=== PATIENT | female | born 1945 | race African-American/Black ===

== ENCOUNTER 2016-07-31 17:35 | Inpatient (IN) | payer OTHER, MEDICARE ==
--- NOTE | ~2016-07-31 | PRECARD ---
H&P [facility] [address] [place]. [address] NAME: AMIRA BEST : 47 STATUS : ADM IN [facility]#: [id number] AGE: 71 ADM/REG DATE : 07/31/16 MR#: [id number] REPORT SERV DATE: 07/31/16 DICTATED BY: GARRETT ALMANZA DATE: 07/31/16 REPORT STATUS : Draft TRANSCRIBED BY: CAMILLA DATE: 07/31/16 DATE OF ADMISSION: 07/31/2016 ADMISSION REASON: Symptomatic bradycardia. HISTORY OF PRESENT ILLNESS: Ms Best is a 71-year-old female with a history of treated hypertension and bipolar disorder, who presented to an outside facility for further evaluation of recent profound fatigue/malaise and exertional intolerance with shortness of breath. She had no chest pain/angina. She had some mild dizziness, but no near syncope or syncope. On arrival there, she was noted to have a bradycardia and an EKG obtained shows sinus bradycardia with a heart rate of 33 beats per minute. She was triaged to the [facility] Emergency Department for further evaluation, where repeat EKG obtained showed a sinus bradycardia at 41 beats per minute with junctional escape and an isorhythmic dissociation. She required no treatment and was otherwise hemodynamically stable. Subsequently since being in the ER, she is stable sinus bradycardia in the 50s. She reports having a heart rate that typically runs low in the 40s-50s, but symptoms recently were new and different for her. She denies having any recent orthopnea/PND or lower extremity edema. REVIEW OF SYSTEMS: Pertinent positives and negatives as outlined above, all others are negative. PAST MEDICAL HISTORY: 1. Hypertension. 2. Bipolar disorder. 3. Iron deficiency anemia. MEDICATIONS: Her current home medications are: 1. Amlodipine 10 mg daily. 2. Lisinopril 20 mg daily. 3. Potassium supplementation. 4. Synthroid 175 mcg daily. 5. Omeprazole 20 mg daily. 6. Vitamin B12 supplementation. 7. Vitamin D supplementation. 8. Lamictal 100 mg twice daily. 9. Quetiapine 400 mg at bedtime. 10.Bupropion 225 mg twice daily. 11.Iron supplementation. 12.Fluticasone nasal spray. ALLERGIES: NSAIDS AND ASPIRIN, WHICH CAUSES ANAPHYLAXIS AND TONGUE SWELLING. SOCIAL HISTORY: She has a 21-year history of service. She has never use tobacco products. She does not consume alcohol or illegal drugs. FAMILY HISTORY: Significant for hypertension and breast cancer. No family history of H&P PRE [address] [place]. [address] NAME: AMIRA BEST : 47 STATUS : ADM IN [facility]#: [id number] AGE: 71 ADM/REG DATE : 07/31/16 MR#: [id number] REPORT SERV DATE: 07/31/16 DICTATED BY: GARRETT ALMANZA DATE: 07/31/16 REPORT STATUS : Draft TRANSCRIBED BY: CAMILLA DATE: 07/31/16 premature CAD, arrhythmia, or sudden . PHYSICAL EXAMINATION: VITALS: Temperature is afebrile, pulse is 50, respirations 16, blood pressure 170/80. MENTAL STATUS: Awake, alert, and oriented x3. PSYCH: Euthymic, normal affect. GENERAL: Well appearing and in no distress. HEENT: Sclerae anicteric, mucous membranes moist and without lesions. NECK: No jugular venous distention. No hepatojugular reflux, carotid upstrokes 2+ and symmetric, there are no carotid or subclavian bruit. LUNGS: Clear to auscultation without wheezes, crackles, or rales. CARDIOVASCULAR: Regular with normal S1 and S2, no murmurs, no S3 or S4, no parasternal lift, PMI is nondisplaced and nonsustained. ABDOMEN: Soft and nontender. Bowel sounds positive and normoactive. No hepatomegaly, no masses, no abdominal bruit. PULSES: Radial and dorsalis pedis pulses 2+ and symmetric. EXTREMITIES: Warm and without edema. SKIN: No clubbing or cyanosis, no rashes or lesions. ACCESSORY DATA: Labs with creatinine of 1.3, otherwise normal electrolytes. Hematocrit 37, platelet count 246, white count 6.4. Troponin negative. INR 1.1. IMPRESSION: 1. Sinus node dysfunction/sick sinus syndrome. 2. Symptomatic bradycardia. 3. Hypertension. 4. Bipolar disorder. 5. History of iron deficiency anemia. PLAN: 1. Admit to IMCU with atropine at bedside. 2. Urinalysis. 3. Check a.m. labs including thyroid profile. 4. Check a.m. echocardiogram to assess cardiac dimensions and function. 5. A.m. ECG. 6. N.p.o. after midnight for permanent pacemaker placement. CONSENT: Risk and benefits of permanent pacemaker placement were discussed with the patient tonight. Risks including bleeding, infection, vascular access trauma, pneumothorax, myocardial damage and pericardial effusion, and rare less than 1% chance of major complications such as heart attack and stroke were all covered. After this, informed consent was obtained and she agreed to proceed. BRENDA/CAMILLA H&P [address] [address] NAME: AMIRA BEST : 47 STATUS : ADM IN [facility]#: [id number] AGE: 71 ADM/REG DATE : 07/31/16 MR#: [id number] REPORT SERV DATE: 07/31/16 DICTATED BY: GARRETT ALMANZA DATE: 07/31/16 REPORT STATUS : Draft TRANSCRIBED BY: CAMILLA DATE: 07/31/16 Garrett Almanza M.D. / [id number] CC: Blane Burnett
--- NOTE | ~2016-07-31 | DS ---
Discharge Summary [facility] [address] [place]. [address] NAME: AMIRA ESTEBAN : 47 STATUS : DIS IN PAT#: [id number] AGE: 71 ADM/REG DATE : 07/31/16 MR#: [id number] REPORT SERV DATE: 08/12/16 DICTATED BY: GARRETT ALMANZA DATE: 08/12/16 REPORT STATUS : Draft TRANSCRIBED BY: CAMILLA DATE: 08/12/16 Data Collection from hospitalization DISCHARGE DIAGNOSES: 1. Symptomatic bradycardia. 2. Sinus node dysfunction/sick sinus syndrome. 3. Hypertension. 4. Acute renal failure/acute kidney injury. 5. Bipolar disorder. 6. Iron deficiency anemia. CONSULTATIONS: 1. Sebas Patterson M.D. 2. Cesar Purdy M.D. PROCEDURES PERFORMED: Pacemaker implantation on 08/01/2016. MEDICATIONS: Tylenol 1300 mg twice a day as needed, Ventolin two puffs via inhaler every six hours as needed, Norvasc 5 mg daily, Wellbutrin 225 mg twice a day, Coreg 6.25 mg twice a day, vitamin D3 1000 units with lunch, docusate sodium 250 mg every morning, ferrous sulfate 325 mg every morning, Flonase nasal spray one spray nasally twice a day, Lamictal 100 mg twice a day, levothyroxine 175 mcg before breakfast, Claritin 10 mg every morning, Prilosec 20 mg before breakfast, Seroquel 400 mg at bedtime, Ultram one to two tablets every four hours as needed, urea one application topically at bedtime, vitamin B12 one tablet every morning, and vitamin A/D ointment one application topically daily. She was instructed not to continue Klor-Con or Prinivil. CONDITION AT DISCHARGE: Stable. DISPOSITION: The patient was discharged home on a low-sodium, low-cholesterol, cardiac diet with activities as instructed. She would follow up with Dr. Cesar Purdy on 08/20/2016 and with me three to four weeks following discharge. She would follow up in the [facility] at [facility] three weeks following discharge. HOSPITAL COURSE: This is a 71-year-old female who has a history of treated hypertension and bipolar disorder who presented to an outside facility for further evaluation of recent profound fatigue and malaise and exertional intolerance with shortness of breath. She had no chest pain/angina. She had some mild dizziness, but no near syncope or syncope. On arrival there, she was found to have bradycardia and an EKG was obtained and it showed sinus bradycardia with a heart rate of 33 beats per minute. She was triaged to the [facility] Emergency Department for further evaluation and repeat EKG obtained showed a sinus bradycardia at 41 beats per minute with junctional escape and isorhythmic dissociation. She required no treatment and was otherwise hemodynamically stable. Subsequently since being in the emergency room, she was stable with sinus bradycardia in the 50s. She reported having a heart rate that typically runs in the 40-50, but symptoms recently were new and different for her. She denied having any recent orthopnea, PND, or lower extremity edema. She was admitted to the hospital for further evaluation and treatment. Discharge Summary [address] [address] NAME: AMIRA ESTEBAN : 47 STATUS : DIS IN PAT#: [id number] AGE: 71 ADM/REG DATE : 07/31/16 MR#: [id number] REPORT SERV DATE: 08/12/16 DICTATED BY: GARRETT ALMANZA DATE: 08/12/16 REPORT STATUS : Draft TRANSCRIBED BY: MODRuslan DATE: 08/12/16 Upon admission, troponin was negative. Creatinine was 1.3. She was felt to have sinus node dysfunction/sick sinus syndrome and symptomatic bradycardia. She was placed in the IMCU with atropine at the bedside. Urinalysis was obtained. We would check a.m. labs including thyroid profile and would check an echocardiogram to assess cardiac dimensions and functions. A.m. ECG was going to be performed. She would be held n.p.o. after midnight as it was felt that she would need to undergo permanent pacemaker placement. She agreed to proceed. She was seen in consultation by Dr. Sebas Patterson regarding symptomatic sinus bradycardia. In the emergency room, she was found to be in profound sinus bradycardia with heart rates in the 30s at times with isorhythmic dissociation. She had no medications that would have caused sinus bradycardia. She does receive thyroid replacement hormone, but all of her thyroid studies were within normal limits except for a reverse T3 value which was only slightly abnormal. She had no electrolyte abnormalities. She denies presyncope or syncope. She did admit to being profoundly weak and fatigued. Her EKG showed sinus bradycardia with isorhythmic dissociation, normal QRS and QT intervals. There was no evidence for ischemia infarction or chamber hypertrophy. It was felt that she would need to undergo dual-chamber permanent pacemaker implantation. She agreed to proceed. The following day, she was taken to the Electrophysiology Laboratory where she underwent the above-mentioned procedure. She tolerated this well, and there were no complications. On postop day #1, she was seen by Dr. Cesar Purdy regarding acute kidney injury. Creatinine on arrival was 1.3. Prior to pacemaker placement, it was 1.47. At the time of this consult, it had increased to 2.37. Her potassium was elevated at 6.3. Apparently, she developed some shortness of breath and was diuresed and given oral potassium. She was maintained on her lisinopril. We did not see any excessive low blood pressures or contrasted studies. She said her shortness of breath had improved. A Petersen catheter was in place with good urine output. Repeat potassium was 4.7. She was felt to have acute kidney injury on chronic kidney disease. Her baseline was unclear. She had received Kayexalate. DAVID inhibitor was held. She received a saline bolus. Her creatinine was already improving. She was going to be given some sodium bicarbonate. On 08/03/2016, she did complain of some shortness of breath, but she subjectively she looks fine. She had no chest pain. Her lungs were clear bilaterally. Creatinine level was now 2.37. Potassium level was improving and was 4.1. She remained off DAVID inhibitor. We hoped for renal recovery in a few days. Discharge planning was performed. Renal function remained stable. On 08/04/2016, she was in no acute distress. She was awake and alert. Renal function was much improved. The Petersen catheter was discontinued. Discharge instructions were given. Due to her improved and stable condition, she was discharged home with the above-stated instructions. Information collected by: Jill Sheehan I submit the above information as my discharge summary. TG/MODL Garrett Almanza M.D. / [id number] CC: Discharge Summary [place] [address] [place]. [address] NAME: AMIRA ESTEBAN : 47 STATUS : DIS IN PAT#: [id number] AGE: 71 ADM/REG DATE : 07/31/16 MR#: [id number] REPORT SERV DATE: 08/12/16 DICTATED BY: GARRETT ALMANZA. DATE: 08/12/16 REPORT STATUS : Draft TRANSCRIBED BY: MODL DATE: 08/12/16 Renny Torre TAWANDA GALE Nathan Chamberlain, M.D. Gregg Shander, M.D.
--- NOTE | ~2016-07-31 | CN ---
Consultation Report [facility] [address] [place]. [address] NAME: AMIRA BEST : 47 STATUS : ADM IN [facility]#: [id number] AGE: 71 ADM/REG DATE : 07/31/16 MR#: [id number] REPORT SERV DATE: 08/01/16 DICTATED BY: VITOR RAMIREZ DATE: 08/01/16 REPORT STATUS : Draft TRANSCRIBED BY: CAMILLA DATE: 08/01/16 CONSULTATION DATE OF CONSULTATION: REASON FOR CONSULTATION: Symptomatic sinus bradycardia. HISTORY OF PRESENT ILLNESS: Ms. Best is a pleasant 71-year-old woman with a long history of noting slow heart rates usually in the high 40s to low 50s. She began feeling progressively more tired and weak and fatigued. She presented to the emergency room and was found to be in a profound sinus bradycardia with heart rates in the 30s at times with isorhythmic dissociation. She had no medications that would have caused the sinus bradycardia. She does receive thyroid replacement hormone, but all of her thyroid studies were within normal limits except for a reverse T3 value which was only slightly abnormal. She had no electrolyte abnormalities. She denies presyncope or syncope, but as mentioned is profoundly weak and fatigued. PAST MEDICAL HISTORY: Notable for bipolar disorder, for which she takes several medications. She also has a history of hypothyroidism and history of hypertension. CURRENT MEDICATIONS: Include Norvasc, Wellbutrin, Lamictal, Synthroid, Prinivil, Claritin, Protonix, Seroquel, and potassium. FAMILY HISTORY: Negative for premature coronary artery disease or sudden cardiac . SOCIAL HISTORY: Negative for tobacco or alcohol. REVIEW OF SYSTEMS: As noted above. All other systems reviewed and negative. PHYSICAL EXAMINATION: GENERAL: She is in no acute distress. Of note, the patient was started isoproterenol last night. VITAL SIGNS: Her blood pressure is 140/62, her pulse is 60 on isoproterenol, in sinus rhythm, and respirations 16. HEENT: No icterus. Good dentition. NECK: Supple. No masses or thyromegaly LUNGS: Breathing comfortably. No rales or wheezes. COR: Normal S1, S2. No S3 or S4. No murmurs, clicks, rubs. No JVD ABD: Soft, nondistended, nontender, no hepatosplenomegaly. EXT: No clubbing, cyanosis or edema. Peripheral pulses 2+/=bilaterally. SKIN: Warm and dry. No visible lesions. MS: Chest wall without deformity, no obvious clavicular fractures. NEURO/PSYCH: Oriented X3. No anxiety or depression. Consultation Report [place] [address] [place]. [address] NAME: AMIRA BEST : 47 STATUS : ADM IN [facility]#: [id number] AGE: 71 ADM/REG DATE : 07/31/16 MR#: [id number] REPORT SERV DATE: 08/01/16 DICTATED BY: VITOR RAMIREZ DATE: 08/01/16 REPORT STATUS : Draft TRANSCRIBED BY: CAMILLA DATE: 08/01/16 DIAGNOSTIC STUDIES: EKG shows sinus bradycardia with isorhythmic dissociation. Normal QRS and QT intervals. No evidence for ischemia, infarction, or chamber hypertrophy. IMPRESSION: The patient exhibits symptomatic sinus bradycardia that has been progressive. Heart rates are currently in the 30s. She feels profoundly weak and fatigued. Should the patient is not on any medications that should be causing the sinus bradycardia and her electrolytes and thyroid studies are within normal limits. I have recommended that she undergo dual-chamber permanent pacemaker implantation. I have described the procedure in detail and noted the inherent risks which include, but are not exclusive to, bleeding, infection, pneumothorax, cardiac perforation, and risk of . The patient claims to understand these issues and she is willing to proceed. We will plan to perform this later today. SHIKHA/CAMILLA Vitor Ramirez M.D. / [id number] CC: Renny Torre TAWANDA GALE
--- NOTE | ~2016-07-31 | CN ---
Consultation Report [facility] [address] [place]. [address] NAME: AMIRA BEST : 47 STATUS : ADM IN [facility]#: [id number] AGE: 71 ADM/REG DATE : 07/31/16 MR#: [id number] REPORT SERV DATE: 08/02/16 DICTATED BY: DATE: REPORT STATUS : Draft TRANSCRIBED BY: MODL DATE: 08/02/16 CONSULTATION DATE OF CONSULTATION: REASON FOR CONSULTATION: Acute kidney injury. HISTORY OF PRESENT ILLNESS: Ms. Best is a 71-year-old female, who does have a history of kidney disease, the exact details and creatinine are unknown. She states that her primary care provider has been following this very closely. Her kidney had gotten worse at some point, but then improved. She has hypertension as well. She presented to the hospital with symptomatic bradycardia and underwent pacemaker placement on 08/01. Her creatinine on arrival was 1.3, before pacemaker placement was 1.47. Creatinine this morning increased to 2.37, her potassium was elevated at 6.3, and we were asked to see her in consultation. Apparently, yesterday evening after the catheterization, the patient developed some shortness of breath. She was diuresed and given p.o. potassium. She was maintained on her lisinopril. I do not see any excessive low blood pressures. I do not see any contrasted studies. She currently expresses that her shortness of breath is better. She has a Petresen catheter to bedside drainage with good urine output. Her repeat potassium is 4.7 with a creatinine of 2.25. PAST MEDICAL HISTORY: Hypertension, anemia, bipolar disorder, and posttraumatic stress disorder. She has now sick sinus syndrome, status post pacemaker. FAMILY MEDICAL HISTORY: She had an uncle with end-stage renal disease, on dialysis, but this was not until he was in his 80s and it was related to heart medicine. SOCIAL HISTORY: She lives alone. No tobacco, alcohol, or illicit drug use. ALLERGIES: ASPIRIN AND NSAIDS. MEDICATIONS: At the time of consultation, her DAVID inhibitor has been held as well as her p.o. potassium. She is currently still on amlodipine, bupropion, cholecalciferol, Colace, ferrous sulfate, fluticasone, Lamictal, levothyroxine, loratadine, Protonix, Seroquel, and topical vitamin A and D ointment. REVIEW OF SYSTEMS: A 12-point review of systems obtained and negative with the exception of that in the HPI. PHYSICAL EXAMINATION: VITAL SIGNS: Temperature 98.6, blood pressure 142/64, pulse 60, respiratory rate 15, O2 saturation 98% on no oxygen via nasal cannula. GENERAL: This is a pleasant and cooperative female. She is awake, alert and oriented, sitting in a chair at bedside. Consultation Report [address] [place]. [address] NAME: AMIRA BEST : 47 STATUS : ADM IN PAT#: [id number] AGE: 71 ADM/REG DATE : 07/31/16 MR#: [id number] REPORT SERV DATE: 08/02/16 DICTATED BY: DATE: REPORT STATUS : Draft TRANSCRIBED BY: CAMILLA DATE: 08/02/16 HEENT: Normocephalic and atraumatic. Conjunctivae clear. Sclerae anicteric. Pupils are equal and round. Oral mucosa is moist. NECK: Supple. Carotids without bruits. Neck veins flat. No lymphadenopathy. LUNGS: Respirations are even and unlabored. She does have some faint wheezing noted throughout. HEART: Rate is regular. No murmur, rub, or gallop. ABDOMEN: Soft and nontender. Bowel sounds active. No masses. No hepatosplenomegaly. No bruits. No CVA tenderness. BACK: Within normal limits. EXTREMITIES: No significant edema, cyanosis, or clubbing. SKIN: Warm, dry, and intact. No unusual rashes or skin lesions. NEURO: No focal deficits. Mood and affect, pleasant and appropriate. PERTINENT LABORATORIES AND X-RAYS: Her chest x-ray is being read as congestive heart failure. Sodium 136, potassium 4.7, chloride 100, CO2 of 25, BUN of 28, creatinine of 2.25, calcium 8.6. She had an echo performed earlier today, which revealed an EF of 60%. Urinalysis on arrival was negative for protein or blood. IMPRESSION: 1. Acute kidney injury on chronic kidney disease, baseline unclear. 2. Sick sinus syndrome, status post pacemaker, postop day one. 3. Hyperkalemia. 4. Metabolic acidosis. 5. Shortness of breath. 6. Hypertension. PLAN/RECOMMENDATIONS: We have already held DAVID inhibitor. She has gotten Kayexalate. She has gotten a saline bolus, and her creatinine has already improved. She has also been given some sodium bicarbonate. She has a Petersen in place. Would follow I's and O's and labs and follow along with you. Continue to hold the DAVID inhibitor. Further orders and recommendations pending clinical course. BEATRICE/CAMILLA RIGOBERTO Funez / [id number] CC: Garrett Obregon M.D.
[2016-07-31 17:24] LABS: BASOPHILS 0.8 %; BASOPHILS ABSOLUTE 0.05 10/3/uL (0.0-0.16); EOSINOPHILS 4.2 %; EOSINOPHILS ABSOLUTE 0.27 10/3/uL (0.0-0.53); HEMATOCRIT 37.3 % (36.0-48.0); HEMOGLOBIN 12.8 g/dL (12.0-16.0); IMMATURE GRANULOCYTES 0.2 %; IMMATURE GRANULOCYTES ABSOLUTE 0.01 10/3/uL (0.0-0.11); LYMPHOCYTES 32.7 %; MEAN CORPUS HGB CONC 34.3 g/dL (32.0-36.0); MEAN CORPUSCULAR HEMOGLOB 28.8 pg (26.0-34.0); MEAN CORPUSCULAR VOLUME 83.8 fL (80-100); MONOCYTES ABSOLUTE 0.45 10/3/uL (0.21-1.20); NEUTROPHILS 55.1 %; NEUTROPHILS ABSOLUTE 3.54 10/3/uL (2.02-8.40); PLATELET COUNT 246 10/3/uL (150-400); RBC DISTRIBUTION WIDTH 12.5 % (12.0-16.0); RED CELL COUNT 4.45 10/6/uL (4.0-5.6); WHITE BLOOD CELLS 6.4 10/3/uL (4.5-10.5)
[2016-07-31 17:26] LABS: MANUAL DIFF NO %
[2016-07-31 17:32] LABS: INTERNATIONAL NORMAL RATI 1.1 UNITS (-); PARTIAL THROMBO TIME 29.3 SEC (22.5-37.2); PROTIME (NOT ORD) 14.1 SEC (12.0-14.5)
[~2016-07-31 17:35] MED LIST: 8 HOUR650 MG PO; CLARIT10 PO; DOK250 MG PO; FERROUS SULF325 M1 PO; FLONASE NAS; KLOR-CON M2020 MEQ PO; LAMICTAL10 PO; LEVOTHYROXIN175 MCG PO; NORV5 PO; PRILO PO; PRIN20 PO; SEROQUEL400 MG PO; UREA 10% TOP; VITAMIN A TOP; VITAMIN B-12 PO; VITAMIN D31000 UNIT PO; WELL75 PO; [UNRECOGNIZED DRUG - OTHER] TOP
[2016-07-31 17:54] LABS: BUN (BLOOD UREA NITROGEN) 21 MG/DL (6-23); CALCIUM, SERUM 9.5 MG/DL (8.5-10.4); CHLORIDE, SERUM 100 MMOL/L (96-112); CO2 (CARBON DIOXIDE) 23 MMOL/L (24-34); CREATININE 1.32 MG/DL (0.55-1.02); DIGOXIN 0.1 NG/ML (0.8-2.0); GFR AFRICAN AMERICAN 47 ML/MIN (>=60); GFR NON AFRICAN AMERICAN 41 ML/MIN (>=60); GLUCOSE, SERUM 88 MG/DL (60-99); POTASSIUM, SERUM 4.1 MMOL/L (3.5-5.3); SODIUM, SERUM 134 MMOL/L (135-148); TROPONIN I <0.02 NG/ML (<0.05)
[2016-07-31 17:55] LABS: CHEST PAIN PROFILE TAT 0 Hrs 36 Mins
[2016-07-31 20:11] LABS: T4 (THYROXINE) TOTAL 10.7 MCG/DL (4.5-12.0); ULTRASENSITIVE TSH 0.722 MCIU/ML (0.358-3.740)
[2016-07-31 20:15] LABS: ASCORBIC ACID (UR NOT ORDER) NEG (NEG); BILIRUBIN, URINE NEGATIVE (NEG); ER URINALYSIS TAT 0 Hrs 14 Mins; KETONE, URINE NEGATIVE (NEG); LEUKOCYTE ESTERASE(NOT OR NEG (NEG); NITRITE (URINE) NEG (NEG); WBC (NOT ORDERED) (RFLEX) 4 (0-5)
[2016-08-01 04:55] LABS: BUN (BLOOD UREA NITROGEN) 23 MG/DL (6-23); CHLORIDE, SERUM 101 MMOL/L (96-112); CO2 (CARBON DIOXIDE) 23 MMOL/L (24-34); CREATININE 1.47 MG/DL (0.55-1.02); GFR AFRICAN AMERICAN 41 ML/MIN (>=60); GFR NON AFRICAN AMERICAN 36 ML/MIN (>=60); POTASSIUM, SERUM 3.5 MMOL/L (3.5-5.3); SODIUM, SERUM 137 MMOL/L (135-148)
[2016-08-01 04:58] LABS: GLUCOSE, SERUM 112 MG/DL (60-99)
[2016-08-01 05:33] LABS: BASOPHILS 0.5 %; BASOPHILS ABSOLUTE 0.04 10/3/uL (0.0-0.16); EOSINOPHILS 3.7 %; EOSINOPHILS ABSOLUTE 0.28 10/3/uL (0.0-0.53); HEMATOCRIT 35.4 % (36.0-48.0); HEMOGLOBIN 12.5 g/dL (12.0-16.0); IMMATURE GRANULOCYTES 0.4 %; IMMATURE GRANULOCYTES ABSOLUTE 0.03 10/3/uL (0.0-0.11); LYMPHOCYTES 28.9 %; LYMPHOCYTES ABSOLUTE 2.22 10/3/uL (0.67-4.30); MEAN CORPUS HGB CONC 35.3 g/dL (32.0-36.0); MEAN CORPUSCULAR HEMOGLOB 30.1 pg (26.0-34.0); MEAN CORPUSCULAR VOLUME 85.3 fL (80-100); MEAN PLATELET VOLUME 10.2 fL (9.2-13.0); MONOCYTES 7.8 %; NEUTROPHILS 58.7 %; PLATELET COUNT 230 10/3/uL (150-400); RBC DISTRIBUTION WIDTH 12.5 % (12.0-16.0); RED CELL COUNT 4.15 10/6/uL (4.0-5.6); WHITE BLOOD CELLS 7.7 10/3/uL (4.5-10.5)
[2016-08-01 05:36] LABS: MANUAL DIFF NO %
[2016-08-02 05:48] LABS: BUN (BLOOD UREA NITROGEN) 26 MG/DL (6-23); CALCIUM, SERUM 8.9 MG/DL (8.5-10.4); CHLORIDE, SERUM 105 MMOL/L (96-112); CO2 (CARBON DIOXIDE) 20 MMOL/L (24-34); SODIUM, SERUM 134 MMOL/L (135-148)
[2016-08-02 06:09] LABS: CREATININE 2.37 MG/DL (0.55-1.02); GFR AFRICAN AMERICAN 23 ML/MIN (>=60); GFR NON AFRICAN AMERICAN 20 ML/MIN (>=60); GLUCOSE, SERUM 155 MG/DL (60-99); POTASSIUM, SERUM 6.3 MMOL/L (3.5-5.3)
[2016-08-02 12:39] LABS: BUN (BLOOD UREA NITROGEN) 28 MG/DL (6-23); CALCIUM, SERUM 8.6 MG/DL (8.5-10.4); CHLORIDE, SERUM 100 MMOL/L (96-112); CO2 (CARBON DIOXIDE) 25 MMOL/L (24-34); CREATININE 2.25 MG/DL (0.55-1.02); GFR AFRICAN AMERICAN 25 ML/MIN (>=60); GFR NON AFRICAN AMERICAN 21 ML/MIN (>=60); GLUCOSE, SERUM 115 MG/DL (60-99); POTASSIUM, SERUM 4.7 MMOL/L (3.5-5.3); SODIUM, SERUM 136 MMOL/L (135-148)
[2016-08-02 17:47] LABS: ASCORBIC ACID (UR NOT ORDER) NEG (NEG); BILIRUBIN, URINE NEGATIVE (NEG); KETONE, URINE NEGATIVE (NEG); LEUKOCYTE ESTERASE(NOT OR SMALL (NEG); WBC (NOT ORDERED) (RFLEX) 11 (0-5)
[2016-08-03 06:20] LABS: BASOPHILS 0.6 %; BASOPHILS ABSOLUTE 0.06 10/3/uL (0.0-0.16); EOSINOPHILS 8.8 %; EOSINOPHILS ABSOLUTE 0.96 10/3/uL (0.0-0.53); HEMATOCRIT 38.5 % (36.0-48.0); HEMOGLOBIN 12.8 g/dL (12.0-16.0); IMMATURE GRANULOCYTES 0.2 %; IMMATURE GRANULOCYTES ABSOLUTE 0.02 10/3/uL (0.0-0.11); LYMPHOCYTES 26.4 %; LYMPHOCYTES ABSOLUTE 2.88 10/3/uL (0.67-4.30); MEAN CORPUSCULAR HEMOGLOB 28.4 pg (26.0-34.0); MEAN CORPUSCULAR VOLUME 85.4 fL (80-100); MEAN PLATELET VOLUME 9.8 fL (9.2-13.0); MONOCYTES 9.1 %; MONOCYTES ABSOLUTE 0.99 10/3/uL (0.21-1.20); NEUTROPHILS 54.9 %; NEUTROPHILS ABSOLUTE 5.99 10/3/uL (2.02-8.40); PLATELET COUNT 214 10/3/uL (150-400); RBC DISTRIBUTION WIDTH 13.2 % (12.0-16.0); RED CELL COUNT 4.51 10/6/uL (4.0-5.6)
[2016-08-03 06:23] LABS: MANUAL DIFF NO %; MEAN CORPUS HGB CONC 33.2 g/dL (32.0-36.0); WHITE BLOOD CELLS 10.9 10/3/uL (4.5-10.5)
[2016-08-03 06:35] LABS: ALBUMIN 2.9 G/DL (3.5-5.0); BUN (BLOOD UREA NITROGEN) 33 MG/DL (6-23); CALCIUM, SERUM 8.6 MG/DL (8.5-10.4); CHLORIDE, SERUM 98 MMOL/L (96-112); CO2 (CARBON DIOXIDE) 26 MMOL/L (24-34); CREATININE 2.37 MG/DL (0.55-1.02); GFR AFRICAN AMERICAN 23 ML/MIN (>=60); GFR NON AFRICAN AMERICAN 20 ML/MIN (>=60); GLUCOSE, SERUM 107 MG/DL (60-99); PHOSPHORUS, SERUM 3.3 MG/DL (2.5-4.5); POTASSIUM, SERUM 4.1 MMOL/L (3.5-5.3); SODIUM, SERUM 135 MMOL/L (135-148)
[2016-08-04 08:51] LABS: ALBUMIN 3.2 G/DL (3.5-5.0); CHLORIDE, SERUM 102 MMOL/L (96-112); CO2 (CARBON DIOXIDE) 27 MMOL/L (24-34); GLUCOSE, SERUM 96 MG/DL (60-99); PHOSPHORUS, SERUM 3.4 MG/DL (2.5-4.5); POTASSIUM, SERUM 4.4 MMOL/L (3.5-5.3); SODIUM, SERUM 140 MMOL/L (135-148)
[2016-08-04 08:52] LABS: BUN (BLOOD UREA NITROGEN) 24 MG/DL (6-23); CALCIUM, SERUM 9.7 MG/DL (8.5-10.4); CREATININE 1.39 MG/DL (0.55-1.02); GFR AFRICAN AMERICAN 44 ML/MIN (>=60); GFR NON AFRICAN AMERICAN 38 ML/MIN (>=60)
[2016-08-04] MEDS ORDERED: COREG6 PO (14:52)
[2016-08-04] MEDS ORDERED: VENTOLIN HFA INH (14:52)
[2016-08-04] MEDS ORDERED: ULTRAM50 PO (14:54)
== END 2016-08-04 17:50 | disposition home or self-care (01) | DRG 242 ==
LOC: ER 17:35 → IMCU 19:43 → SSU1 08-01 12:03 → 6NO 08-02 14:51
PROVIDERS: Emergency Medicine; Internal Medicine Cardiovascular Disease; Nurse Practitioner
PROC: 0JH606Z Insertion of Pacemaker, Dual Chamber into Chest Subcutaneous Tissue and Fascia, Open Approach (ICD-10-PCS; principal; 2016-08-01)
PROC: 02H63JZ Insertion of Pacemaker Lead into Right Atrium, Percutaneous Approach (ICD-10-PCS; 2016-08-01)
PROC: 02HK3JZ Insertion of Pacemaker Lead into Right Ventricle, Percutaneous Approach (ICD-10-PCS; 2016-08-01)
DX: I49.5 Sick sinus syndrome (principal); N17.0 Acute kidney failure with tubular necrosis; E87.2 Acidosis; J90 Pleural effusion, not elsewhere classified; F31.9 Bipolar disorder, unspecified; N18.9 Chronic kidney disease, unspecified; I12.9 Hypertensive chronic kidney disease with stage 1 through stage 4 chronic kidney disease, or unspecified chronic kidney disease; E86.9 Volume depletion, unspecified; D50.9 Iron deficiency anemia, unspecified; Z88.6 Allergy status to analgesic agent; Z82.49 Family history of ischemic heart disease and other diseases of the circulatory system; Z80.3 Family history of malignant neoplasm of breast
CPT/HCPCS: 33208; 71010; 71020; 80048; 80069; 80162; 81001; 82570; 83735; 83880; 84300; 84436; 84443; 84481; 84484; 84540; 85025; 85610; 85730; 87086; 93005; 93288; 93306; 93308; 96365; 96366; 99291; A9270-GY; C1785; C1898; J0360; J0610; J0690; J1940; J2405; J3010; Q9967